=== PATIENT | male | born 1950 | race Caucasian/White ===

== ENCOUNTER 2024-02-03 14:11 | Emergency (ER) | payer MEDICARE, SELFPAY ==
[2024-02-03 14:14] VITALS: BP 138/68; PULSE 77; RESP 16; TEMP 36.7; O2SAT 100
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
== END 2024-02-03 14:30 | disposition short-term general hospital (02) ==
PROVIDERS: Emergency Provider Nurse Practitioner Family
DX: S09.90XA Unspecified injury of head, initial encounter (principal); V11.4XXA Pedal cycle driver injured in collision with other pedal cycle in traffic accident, initial encounter
CPT/HCPCS: 99205; G0463; L0140

== ENCOUNTER 2024-02-03 14:54 | Emergency (ER) | payer MEDICARE, SELFPAY ==
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
[2024-02-03 14:53] VITALS: BP 155/77; PULSE 72; RESP 15; TEMP 36.7; O2SAT 100
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
[2024-02-03 17:43] VITALS: BP 154/92; PULSE 65; RESP 15; TEMP 36.9; O2SAT 96
== END 2024-02-03 17:45 | disposition home or self-care (01) ==
PROVIDERS: Emergency Provider Emergency Medicine
DX: S09.90XA Unspecified injury of head, initial encounter (principal); Z79.899 Other long term (current) drug therapy; M47.812 Spondylosis without myelopathy or radiculopathy, cervical region; Y93.55 Activity, bike riding; V11.4XXA Pedal cycle driver injured in collision with other pedal cycle in traffic accident, initial encounter
CPT/HCPCS: 70450; 72125; 99284; L0140